=== PATIENT | male | born 1965 | race Caucasian/White ===

== ENCOUNTER 2018-10-18 07:50 | Day surgery (SDC) | payer BC ==
[2018-10-18] MEDS ORDERED: PROPOFOL 60 ML (09:41)
== END 2018-10-18 12:46 | disposition home or self-care (01) ==
LOC: GIL 07:50
DX: Z12.11 Encounter for screening for malignant neoplasm of colon (principal); K29.50 Unspecified chronic gastritis without bleeding; K64.4 Residual hemorrhoidal skin tags; K29.80 Duodenitis without bleeding
CPT/HCPCS: 43239; 88305; 88312